=== PATIENT | female | born 1930 | race Caucasian/White ===

== ENCOUNTER 2017-01-05 16:04 | Observation (INO) | payer MEDICARE, OTHER ==
[~2017-01-05] VITALS: Ht 162.6 cm; Wt 79.0 kg
[~2017-01-05 16:04] MED LIST: ALLOPURINOL100 MG PO; ASA CHILDREN'S81 MG PO; KLOR-CON M2020 ME1 PO; LASIX DPS40 MG PO; SYNTHROID DPS0.1 MG PO; VITAMIN D31000 UNIT PO; [UNRECOGNIZED DRUG - OTHER]
[2017-01-08] MEDS ORDERED: TENORMIN DPS50 MG PO (12:29)
[2017-01-08] MEDS ORDERED: CYANOCOBAL1000 MCG/1 SQ (12:30)
[2017-01-08] MEDS ORDERED: CIPRO DPS500 MG PO (12:31)
[2017-01-08] MEDS ORDERED: ATIVAN-DPS0.5 MG PO (12:31)
[2017-01-08] MEDS ORDERED: ANTIVERT-DPS25 MG PO (12:31)
[2017-01-08] MEDS ORDERED: PEPCID DPS20 MG PO (12:31)
== END 2017-01-07 11:08 | disposition home or self-care (01) ==
LOC: 4PCU 16:04
PROVIDERS: ADMIT Internal Medicine
DX: R42 Dizziness and giddiness (principal); R11.2 Nausea with vomiting, unspecified; Z79.899 Other long term (current) drug therapy; Z79.82 Long term (current) use of aspirin; Z88.0 Allergy status to penicillin; Z88.2 Allergy status to sulfonamides; Z88.5 Allergy status to narcotic agent